=== PATIENT | female | born 1975 ===

== ENCOUNTER 2016-12-18 12:47 | Observation (INO) ==
[2016-12-18] MEDS ORDERED: TISSUE ADHESIVE 1 EACH APPLICATOR TOP ONE (12:55)
[2016-12-18] MEDS ORDERED: LIDOCAINE 1%/EPI INJ 20 ML VIAL ONE (12:55)
[2016-12-18] MEDS ORDERED: BUPIVACAINE 0.25% 50 ML VIAL ONE (12:55)
--- NOTE | 2016-12-18 13:31 | General Surg History&Physical ---
Assessment and Plan (1) Cholelithiasis and cholecystitis with obstruction Status: Acute Assessment and plan: Patient has suspected cholecystitis with gallbladder wall thickening with cholelithiasis with large stones; LFTs are unremarkable. We will plan for lap scopic cholecystectomy today. Current Visit: Yes (2) Hypertension Status: Acute Assessment and plan: History of hypertension. We will continue home medications and monitor. Current Visit: Yes (3) Nephrolithiasis Status: Acute Assessment and plan: Patient reports she was told this last night after CT scan. We will attempt to obtain records. Current Visit: Yes History of Present Illness Chief complaint: Abd pain History of present illness: Ms. Acosta is a 41 year old female with past medical history who presented to an outside facility with complaints of abdominal pain associated with nausea she was somewhat improved this morning with persistent pain with radiation to her flank. Resolved nausea. She has had no fever, chills or rigors. She denies chest pain, shortness breath, wheeze, cough, diarrhea, dysuria or hematuria. Transfer chart was reviewed entirely the following pertinents: Ultrasound reported to have urged to similar gallstones the neck of the gallbladder with some inflammation of the gallbladder and wall thickening; we do not have the official report or images for review Patient was afebrile vitals are stable. BMI 42 CBC with WBC 10, hemoglobin 12, hematocrit 38, platelets 314 Urine: Trace blood, 1+ leukocyte esterase, 10-15 WBC per hpf and a few bacteria Creatinine 1.2 liver enzymes unremarkable Home Medications Medication Instructions Recorded Confirmed Type Aspirin EC Tab 81 mg PO DAILY 12/18/16 12/18/16 History Lisinopril [Prinivil] 10 mg PO DAILY 12/18/16 12/18/16 History Loratadine 10 mg PO DAILY 12/18/16 12/18/16 History hydroCHLOROthiazide 12.5 mg PO DAILY 12/18/16 12/18/16 History [Hydrochlorothiazide] Allergies Allergy/AdvReac Type Severity Reaction Status Date / Time No Known Allergies Allergy Verified 12/18/16 13:21 Medical,Surgical,& Family Hx - Medical History Cardio: History of: Hypertension Neurology: No history of: Seizures Genitourinary: History of: Kidney Stones (unsure if she currently has a stone) Other: History of: Miscellaneous Medical Problems (wisdom teeth removal) No history of: Anesthesia Reactions - Surgical History Abdominal Surgeries: Surgical HX of: Appendectomy Orthopedic Surgeries: Surgical HX of;: Orthopedic Surgery (knee scope, carpal tunnel left) - Family History Family History: Reports;: Family Cancer - Social History Smoking Status: Never smoker Frequency of Alcohol Use: None Type of Drug Use: None Exam - Constitutional General appearance: over weight - Head Head exam: Present: atraumatic - Eye Eye exam: Absent: scleral icterus - Neck Neck exam: Present: trachea midline - Respiratory Respiratory exam: Present: clear to auscultation bilaterally - Cardiovascular Cardiovascular exam: Present: RRR - GI/Abdominal GI/Abdominal exam: Present: hypoactive bowel sounds, Sanchez's sign, tenderness ( RUQ), soft. Absent: distended, firm, guarding - Extremities Exam Extremities exam: Absent: calf tenderness, edema - Neurological Exam Neurological exam: Present: alert, oriented X3 Speech: Present: normal - Skin Skin exam: Present: normal color, warm - Constitutional Constitutional: Present: as per HPI - Cardiovascular Cardiovascular: Absent: chest pain at rest, chest pain with activity, dyspnea on exertion, orthopnea - Respiratory Respiratory: Absent: cough, wheezing - Gastrointestinal Gastrointestinal: Present: as per HPI - Genitourinary Genitourinary: Present: as per HPI Quality Measures - VTE Contraindication to Pharmacological VTE Prophylaxis: High Risk of Bleeding Results - Labs Labs: Transfer chart reviewed as above
[2016-12-18] MEDS ORDERED: SODIUM CHLORIDE 0.9% 50 ML IV ONE (13:33)
--- NOTE | 2016-12-18 15:17 | Fluoroscopy Report ---
Exam: [place] cholangiogram in surgery Date: 12/18/2016 12:00 AM Comparison: None Indication: Right upper quadrant pain Technique:[Fluoroscopy time 31 seconds documented with 119 films obtained.] Findings: Injection of nonionic contrast material into the nondilated bile ducts. Probable air bubbles are noted with no obstructing calculus. Contrast in the adjacent pancreatic duct. Impression: No obstructing calculus identified in the nondilated ducts. Probable air bubbles. PROCEDURE INTERPRETED AT [facility] DEPARTMENT OF RADIOLOGY Final Report Signed by: Dr. Rosario Nuñez
--- NOTE | 2016-12-18 15:27 | Anesthesia Post-Op ---
Anesthesia Post OP - Post Ansesthetic Evaluation Patient seen in post op: Yes Resp: within normal limits CV: within normal limits Mental: within normal limits Temp: within normal limits [id number]: within normal limits Nausea and Vomiting: within normal limits Pain: within normal limits
[2016-12-18] MEDS ORDERED: SEVOFLURANE 1 UNIT/15 MINUTE INH ONE (15:29)
[2016-12-18] MEDS ORDERED: PROPOFOL 200 MG/20 ML VIAL IV ONE (15:29)
[2016-12-18] MEDS ORDERED: ROCURONIUM 100 MG/10 ML VIAL IV ONE (15:30)
[2016-12-18] MEDS ORDERED: fentaNYL 100 MCG/2 ML VIAL ONE (15:30)
[2016-12-18] MEDS ORDERED: SUCCINYLCHOLINE 200 MG/10 ML VIAL ONE (15:30)
[2016-12-18] MEDS ORDERED: ACETAMINOPHEN 1,000 MG/100 ML VIAL IV ONE (15:30)
[2016-12-18] MEDS ORDERED: MIDAZOLAM 2 MG/2 ML VIAL ONE (15:30)
--- NOTE | 2016-12-18 15:40 | Operative Note ---
Date of procedure: 12/18/16 Pre-op diagnosis: Acute cholecystitis Post-op diagnosis: same Procedure: Procedure performed: Laparoscopic cholecystectomy with intraoperative cholangiogram Procedure in detail: After informed consent was obtained, patient was taken operating suite lies upon the operating table. After general anesthesia was induced, the abdomen was prepped and draped in usual sterile fashion. After procedural pause local anesthetic infiltrated in skin and subcutaneous tissue just above the umbilicus. Incision was made and dissection carried down through skin and soft tissue. The fascia grasped with [place]'s and elevated. Fascial incision was made. Abdominal cavity was entered bluntly. Finger sweep revealed no adhesions. Rivas trocar placed under direct visualization. Pneumoperitoneum achieved. Camera inserted bowel mesentery inspected found to be free of any violation. Patient was then placed in reverse Trendelenburg position rotated to the left. 2 5 mm trochars placed in the right upper quadrant 11 mm subxiphoid trocar was placed all under visualization. Gallbladder appeared acutely inflamed and edematous. Cholecystotomy made in the gallbladder contents suctioned. I was then able to grasp the gallbladder and retracted superiorly. Infundibulum the gallbladder retracted toward the right hip. Dissection carried out from lateral to medial approach and the triangle of Joyce. The cystic duct and cystic artery were identified and isolated. Using a critical view technique these only 2 structures entering the gallbladder. Clip was placed on the cystic duct neck of the gallbladder junction and partial transection made on the cystic duct. Cholangiocatheter inserted secured in place intraoperative glandular and performed. Cystic duct common bile duct intra-and extrahepatic ducts all filled with no filling defects identified. Contrast was seen entering small bowel. Cholangiocatheter was removed and 2 clips placed on the cystic duct just distal to the partial transection the transection completed. Cystic artery was triple clipped and transected high along the gallbladder wall. Gallbladder was then removed from the gallbladder fossa using hook cautery and placed in Endo Catch sac. It was removed to the Rivas trocar site. Pneumoperitoneum was reachieved and right upper quadrant irrigated and suctioned. Clips inspected found to be intact no leakage of bilious or sanguinous fluid. There is excellent hemostasis. Irrigant remained clear was all suctioned. Trochars were removed as the abdomen desufflated. Fascia at the Rivas trocar site closed using 0 Vicryl [id number] interrupted suture. Wounds thoroughly irrigated and suctioned. Deep dermal layer closed with 3-0 Vicryl. Incision closed with ann. Sterile dressings applied. Patient was extubated taken recovery room in stable condition. All lap and needle counts correct at the end of the case. Anesthesia: RAQUELA, local Surgeon / Physician: Fawad Keller Estimated blood loss: other (Less than 25 cc) Specimens: other (Gallbladder) Condition: stable Disposition: PACU Discharge Plan - Discharge Medications No Action Loratadine 10 mg PO DAILY hydroCHLOROthiazide [Hydrochlorothiazide] 12.5 mg PO DAILY Aspirin EC Tab 81 mg PO DAILY Lisinopril [Prinivil] 10 mg PO DAILY - Follow Up or Referral - Forms/Instructions
[2016-12-18] MEDS ORDERED: ONDANSETRON 4 MG/2 ML VIAL IV PRN (16:47)
[2016-12-18] MEDS ORDERED: INFLUENZA VIRUS VACCINE 0.5 ML SYRINGE IM ONE (17:15)
[2016-12-18] MEDS: DEXTROSE 5% NACL 0.45% 1,000 ML IV SCH (21:50)
[2016-12-18] MEDS: MORPHINE 2 MG/1 ML SYRINGE IV PRN (22:03)
[2016-12-19] MEDS: MORPHINE 2 MG/1 ML SYRINGE IV PRN (04:31)
[2016-12-19 06:07] LABS: Apearance,Urine CLEAR (Clear); Bilirubin,Urine Negative (Negative); Blood, Urine Negative (Negative); Glucose,Urine (UA) Negative (Negative); Ketones,Urine Negative (Negative); Mucus,Urine Occasional /LPF (Occasional); Nitrite,Urine Negative (Negative); Protein,Urine Negative; RBC,Urine 1 /HPF (0-4); Squamous Epithelial Cell,Urine Occasional /HPF (0-10); Urine Color Straw (Yellow); Urine Specific Gravity 1.008 (1.001-1.035); Urine Urobilinogen < 2.0 EU/DL (0.2-1.0); WBC,Urine 5 /HPF (0-6)
[2016-12-19] MEDS: DEXTROSE 5% NACL 0.45% 1,000 ML IV SCH (06:32)
[2016-12-19] MEDS ORDERED: hydroCHLOROthiazide 12.5 MG CAPSULE PO SCH (09:00)
[2016-12-19] MEDS ORDERED: PANTOPRAZOLE 40 MG TABLET PO SCH (09:00)
[2016-12-19] MEDS ORDERED: LORATADINE 10 MG TABLET PO SCH (09:00)
[2016-12-19] MEDS ORDERED: ASPIRIN EC 81 MG TABLET PO SCH (09:00)
[2016-12-19] MEDS ORDERED: LISINOPRIL 10 MG TABLET PO SCH (09:00)
--- NOTE | 2016-12-19 10:39 | Discharge Summary ---
Hospital Course - Hospital Course Hospital Course: Patient is a 41-year-old female who was transferred to the emergency department for an outside facility for acute cholecystitis. She underwent laparoscopic cholecystectomy with intraoperative cholangiogram without complication. Postoperatively her symptoms are much improved. He transfer CT scan report was requested reviewed. The patient was noted to have a 1 mm calcification of her kidney including nephrolithiasis as well as hepatic steatosis. These results in addition to her primary diagnoses were reviewed with the patient. Ultimately she was discharged home in good condition with instructions for incisional care, oral analgesic use, and follow-up with Dr. Sawant. No complications to note. Diagnosis - Discharge Diagnosis (1) Cholelithiasis and cholecystitis with obstruction Status: Acute (2) Hypertension Status: Acute (3) Nephrolithiasis Status: Acute (4) Hepatic steatosis Status: Acute Specialty Discharge - Follow Up or Referrals Follow up with: Fawad Keller MD [Physician] - Discharge Plan - Discharge Data Disposition: Disch To Home/Self Care Condition at Discharge: Stable Discharge Diet: other (See below) Activity: no lifting (Greater than 10 pounds) Hygiene: may shower (Starting second day after surgery) Driving: other (No driving while taking narcotics) Contact your physician if you experience:: fever over 101, Difficulty voiding, Redness or swelling, Nausea/Vomiting, Shortness of breath, Bleeding, pain uncontrolled by pain medications Wound / Dressing Care Instructions: Keep surgical incisions clean, dry and covered. May shower, but do not soak or submerge wounds. Pat incisions dry. - Discharge Medications New HYDROcodone/ACETAMIN 7.5-325 [[place] 7.5-325] 1 tablet PO Q4H PRN #30 tablet PRN Reason: Pain Moderate To Severe (4-10) Continue Loratadine 10 mg PO DAILY hydroCHLOROthiazide [Hydrochlorothiazide] 12.5 mg PO DAILY Aspirin EC Tab 81 mg PO DAILY Lisinopril [Prinivil] 10 mg PO DAILY - Follow Up or Referral Follow Up: Fawad Keller MD [Physician] - 2 Weeks - Forms/Instructions Instructions: Laparoscopic Cholecystectomy (DC), Non-Alcoholic Fatty Liver Disease (DC), Low Fat Diet (DC) Exam - Constitutional Vitals: Period Temp Pulse Resp BP Sys/[place] Pulse Ox Last 24 Hr 97.9 F-99.8 F 71-91 16-20 89-132/51-81 91-100 General appearance: no acute distress - Eye Eye exam: Absent: scleral icterus - Respiratory Respiratory exam: Present: clear to auscultation bilaterally - Cardiovascular Cardiovascular exam: Present: regular rate and rhythm - GI/Abdominal GI/Abdominal exam: Present: normal bowel sounds, tenderness (Appropriate postoperative tenderness about the incision), soft, other (Surgical dressings are clean, dry and intact) - Extremities Exam Extremities exam: Absent: calf tenderness, edema - Neurological Exam Neurological exam: Present: alert, oriented X3 - Psychiatric Psychiatric exam: Present: normal affect, normal mood - Skin Skin exam: Present: normal color, warm Discharge Results Procedures and tests throughout hospitalization: Pending Orders 12/19/16 Urine Culture Routine Labs on day of discharge: Labs from last 24 hours 12/19/16 12/18/16 04:30 01:35 Urine Color Straw Urine Appearance Clear Urine pH 7.0 Ur Specific [place] 1.008 Urine Protein Negative Urine Glucose (UA) Negative Urine Ketones Negative Urine Blood Negative Urine Nitrate Negative Urine Bilirubin Negative Urine Urobilinogen < 2.0 H Urine Leukocytes Small H Urine RBC 1 Urine WBC 5 Ur Squamous Epith Cells Occasional Urine Mucus Occasional Ur Culture Indicated? Results to follow Urine Test Negative - Additional Comments Transfer records reviewed. No official radiology reading was obtained of the ultrasound, there were reports of distended gallbladder and lodged gallstones. The CT scan report was obtained with findings of nephrolithiasis, concerns for acute cholecystitis, and hepatic steatosis. DS: Provider Date of admission: 12/19/2106 Primary care physician: Elsa Meza MD Attending physician on admission: Dr. Fawad Keller Consults: None required Discharging clinician: Simin Pryor PA-C
[2016-12-19 10:52] VITALS: BP 126/63
--- NOTE | 2016-12-20 11:16 | Pathology Report from [facility] ---
[facility] [place] [id number] PATIENT NAME : Mily Castro ORDERING DR : Fawad Keller MD CLINICAL HX: Cholecystitis, cholelithiasis POST-OP DX: Same SPECIMEN INFO: Gallbladder GROSS DESCRIPTION: Received in formalin labeled MILY CASTRO is a 9.1 x 3.5 cm intact gallbladder. The serosa is smooth fatty pink drew. The gallbladder wall has an average thickness of 0.3 cm. The mucosa is dark bile stained green with a few yellow speckling noted. The lumen contains viscous dark green bile with lobulated yellow brown stones measuring 1.6 x 1.2 cm and 1.7 x 1.4 cm respectively. Tier Over tissue is submitted in one cassette. DIAGNOSIS FOR MILY CASTRO: GALLBLADDER, CHOLECYSTECTOMY: Chronic cholecystitis. Cholesterolosis. Cholelithiasis. COLLECTED DATE: 12/19/2016 [facility] REPORT DATE: 12/20/2016 ELECTRONICALLY SIGNED BY: Rowan Little M.D. 12/20/2016 - 10:04:10 [facility]
== END 2016-12-19 17:10 | disposition home or self-care (01) ==
LOC: N.3E 12:47 → N.OR 12:47 → N.SDSINP 12:51 → N.3E 16:10
PROVIDERS: ADMIT Surgery; ATTEND Surgery
PROC: LAPCHOL (2016-12-18 14:15)